=== PATIENT | male | born 1985 | race Caucasian/White ===

== ENCOUNTER 2020-03-04 16:44 | Outpatient (CLI) | payer OTHER, SELFPAY ==
--- NOTE | ~2020-03-04 | XR_ITS ---
EXAMINATION: XR lumbar spine 2-3V EXAM DATE: 03/04/2020 17:12 INDICATION: Acute bilateral low back pain with left sided sciatica . TECHNIQUE: Lumber spine frontal, lateral, lateral L5-S1 projections for interpretation. There is no prior study for comparison. FINDINGS: Mild lumbar disc disease and facet arthropathy. The vertebral bodies are aligned in the AP dimension. Sacrum, sacroiliac joints, sacral arcuate lines are intact. Paraspinal soft tissue is unr emarkable. IMPRESSION: Mild lumbar spondylosis. Reviewed, dictated and finalized at location A. LE ENGINEER IMPRESSION: Mild lumbar spondylosis.
[2020-03-04 17:33] LABS: Basophils Absolute Auto 0.1 K/mm3 (0.0-0.1); Basophils Percent Auto 0.6 % (0.2-1.2); Eosinophils Absolute Auto 0.2 K/mm3 (0-0.3); Eosinophils Percent Auto 2.3 % (0-4.4); Hematocrit 45.3 % (42.0-52.0); Hemoglobin 14.9 g/dL (14.0-18.0); Immature Granulocyte Absolute 0.04 K/mm3 (0.00-0.031); Immature Granulocyte Percent A 0.4 % (0-0.5); Lymphocytes Absolute Auto 3.02 K/mm3 (0.9-3.2); Lymphocytes Percent Auto 32.5 % (18.3-44.2); Mean Corpuscular HGB Conc 32.9 g/dl (32-36); Mean Corpuscular Hemoglobin 27.1 pg (26-34); Mean Corpuscular Volume 82.4 fl (80-100); Mean Platelet Volume 10.1 fl (7.4-10.4); Monocytes Absolute Auto 0.6 K/mm3 (0.1-0.6); Monocytes Percent Auto 6.4 % (2.6-8.5); Neutrophils Absolute Auto 5.4 K/mm3 (1.3-6.7); Neutrophils Percent Auto 57.8 % (45.5-73.1); Platelet Count Result 266 k/mm3 (150-375); Red Cell Distribution Width 12.1 % (11.5-14.5); White Blood Count 9.3 K/mm3 (4.5-10.0)
[2020-03-04 17:45] LABS: Alanine Aminotransferase 45 U/L (4-50); Albumin Level 4.3 g/dL (3.5-5.1); Alkaline Phosphatase 84 U/L (38-126); Aspartate Amino Transferase 35 U/L (17-59); Bilirubin,Total 0.4 mg/dL (0.2-1.3); Blood Urea Nitrogen 20 mg/dL (9-20); Calcium 9.3 mg/dL (8.4-10.2); Carbon Dioxide 29 mmol/L (22-30); Cholesterol 245 mg/dL (0-200); Estimated Glomerular Filt Rate > 60; Glucose 97 mg/dL (75-110); HDL Direct 44 mg/dL; Triglycerides 344 mg/dL (<150)
[2020-03-04 17:55] LABS: LDL Cholesterol Direct 135 mg/dL
[2020-03-04 18:28] LABS: Anion Gap 7 mmol/L (8-16); Chloride 102 mmol/L (98-107); Potassium 4.3 mmol/L (3.4-5.0); Sodium 138 mmol/L (137-145)
== END 2020-03-04 16:45 | disposition home or self-care (01) ==
PROVIDERS: PCP Physician Assistant; Visit Provider Physician Assistant
DX: M54.42 Lumbago with sciatica, left side (principal); M47.896 Other spondylosis, lumbar region
CPT/HCPCS: 36415; 72100; 80053; 80061; 85025

== ENCOUNTER 2022-06-10 01:29 | Day surgery (SDC) | payer OTHER, SELFPAY ==
[2022-05-30 11:17] VITALS: BMI 32.5
[2022-06-10 09:37] VITALS: BP 120/81; PULSE 59; RESP 19; TEMP 36.4; O2SAT 99
[2022-06-10] MEDS: LACTATED RINGERS 1,000 ML 150 ML IV CONT (09:46)
--- NOTE | 2022-06-10 09:46 | P.PNAN_ITS ---
Anes - Initial Pre Proc Eval Procedure: Operation Date: 06/10/22 10:45 Proposed Procedures p Colonoscopy - Dick Bolton MD Date/Time: 06/10/22 09:46 Surgeon: Dick Bolton MD Pre Op Diagnosis: family hx colon ca, diarrhea Patient Data Age: 37 Gender: M Height: 1.83 m Weight: 109.9 kg Last Vital Signs Temp 97.6 F 06/10/22 09:37 Pulse 59 L 06/10/22 09:37 Resp 19 06/10/22 09:37 BP 120/81 06/10/22 09:37 Pulse Ox 99 06/10/22 09:37 O2 Del Method Room Air 06/10/22 09:37 Allergies Allergy/AdvReac Type Severity Reaction Status Date / Time No Known Allergies Allergy Verified 06/10/22 09:36 Home Medications Medication Instructions Recorded Confirmed Type No Home Medications 05/30/22 05/30/22 History Patient hx anesthesia problems: none Family hx anesthesia problems: none Results Review: All pre-operative results and documents have been reviewed as part of the pre-operative evaluation. [facility] Past Medical History Medical History (Updated 04/25/22 @ 16:08 by MARILYN Bello) Frequent loose stools Hyperlipidemia Family History Family History Father Hyperlipidemia Cerebrovascular accident Hypertension Heart disease COPD (chronic obstructive pulmonary disease) Social History Social History Smoking status: Never smoker Alcohol intake: never Substance use: never Substance use type: does not use Living arrangements: with family Spiritual care concerns: No Anes - Eval Final PreProcedure Day of Procedure 06/10/22 09:46 Patient weight: obese Heart: regular rate and rhythm Lungs: clear to auscultation Airway: Mallampati scale class II Neurological: alert and oriented Last oral intake: >/= 8 hours ASA classification: II Emergent: no Anesthetic plan: proceed Anesthesia type and monitoring: general GIVS and standard monitoring Results Review: All pre-operative results and documents have been reviewed as part of the pre- operative evaluation. Informed Consent: The patient's anesthetic plan and its attendant risks and benefits were discussed with the patient/family/POA. Questions were solicited and answers provided to the satisfaction of the patient/family/POA.
--- NOTE | 2022-06-10 10:00 | PM.HPGS ---
History of Present Illness History of Present Illness Consent: Risks, benefits, and alternatives have been discussed and questions answered. Patient agrees to proceed with procedure. Chief complaint: family hx colon ca, diarrhea Narrative: Keo Salgado is a 37 year old male with loose stools for quite some time, never had colonoscopy. Grandmother had colon cancer Review of Systems Constitutional: Constitutional: Denies headache(s) and Denies weakness Eyes: Eyes: Denies blurry vision ENT: Reports Normal hearing present, Denies headache(s) and Denies neck pain Cardiovascular: Cardiovascular: Denies chest pain and Denies dyspnea Respiratory: Respiratory: Denies dyspnea Gastrointestinal: Gastrointestinal: Reports no additional gastrointestinal complaints Genitourinary: Genitourinary: Denies dysuria Musculoskeletal: Musculoskeletal: Denies neck pain Integumentary/Breasts: Skin/Breast: Denies dry skin Neurologic: Reports Normal hearing present, Denies headache(s) and Denies weakness Psychiatric: Psychiatric: Denies anxiety Endocrine: Endocrine: Denies change in body appearance Hematologic/Lymphatic: Hematologic/Lymphatic: Denies easy bleeding Allergic/Immunologic: Allergic/Immunologic: Denies urticaria PMFSH Past Medical History Medical History (Updated 04/25/22 @ 16:08 by MARILYN Bello) Frequent loose stools Hyperlipidemia Family History Family History Father Hyperlipidemia Cerebrovascular accident Hypertension Heart disease COPD (chronic obstructive pulmonary disease) Social History Social History Smoking status: Never smoker Alcohol intake: never Substance use: never Substance use type: does not use Living arrangements: with family Spiritual care concerns: No Meds Home Medications and Allergies Home Medications Medication Instructions Recorded Confirmed Type No Home Medications 05/30/22 05/30/22 History Allergies Allergy/AdvReac Type Severity Reaction Status Date / Time No Known Allergies Allergy Verified 06/10/22 09:36 Vital Signs Vital Signs - 24 hr 06/10/22 09:37 Temperature 97.6 F Pulse Rate 59 L Respiratory Rate 19 Blood Pressure 120/81 Pulse Oximetry 99 Oxygen Delivery Room Air Exam Const: General: comfortable and no acute distress HENMT: Face/Nose/Sinus: Normal nares present Eyes: General: appearance normal, both eyes and all related structures Neck: Neck: no JVD Resp: Auscultation: clear to auscultation bilaterally Cardio: Rate: regular rate Rhythm: regular rhythm GI: Inspection: non-distended GI Palp: Yes Soft to palpation Skin: General skin exam: normal color Neuro: General: gait normal Speech: normal speech Extrem: General: normal to inspection Psych: Mental Status: mental status grossly normal Assessment and Plan Assessment and plan (1) Frequent loose stools: Code(s): R19.7 - Diarrhea, unspecified Status: Acute Assessment and Plan: colonoscopy, consider random colon bx
[2022-06-10 10:21] VITALS: BP 114/75; PULSE 60; RESP 18; O2SAT 96
[2022-06-10 10:31] VITALS: BP 116/70; PULSE 58; RESP 18; O2SAT 98
[2022-06-10 10:41] VITALS: BP 118/87; PULSE 64; RESP 18; O2SAT 98
== END 2022-06-10 10:47 | disposition home or self-care (01) ==
PROVIDERS: PCP Family Medicine; Visit Provider Internal Medicine Gastroenterology
PROC: 0DJD8ZZ Inspection of Lower Intestinal Tract, Via Natural or Artificial Opening Endoscopic (ICD-10-PCS; CPT 45378; principal; 2022-06-10 10:45)
DX: R19.7 Diarrhea, unspecified (principal); K64.8 Other hemorrhoids; K62.1 Rectal polyp; E66.9 Obesity, unspecified; Z68.32 Body mass index [BMI] 32.0-32.9, adult
CPT/HCPCS: 45380; 88305; J2704; J7120

== ENCOUNTER 2022-10-01 17:35 | Emergency (ER) | payer OTHER, SELFPAY ==
--- NOTE | ~2022-10-01 | XR_ITS ---
Right Hand Technique: PA, oblique, and lateral views were obtained. Clinical History: Injury Findings: No acute fracture or dislocation is seen. Osseous alignment is anatomic. Joint spaces are p reserved. Soft tissue lacerations noted the distal aspect of the second and third fingers. Impression: No fracture or dislocation. Soft tissue lacerations of the distal aspect of the second and third fingers. Reviewed, dictated and finalized at location . Impression: No fracture or dislocation. Soft tissue lacerations of the distal aspect of the second and third fingers.
[2022-10-01 17:36] VITALS: BP 152/133; PULSE 100; RESP 20; TEMP 36.9; O2SAT 99
--- NOTE | 2022-10-01 18:02 | ED.WOUNDLAC ---
HPI - Wound/Laceration General Chief Complaint: Wound/Laceration Stated Complaint: R HAND INJURY Time Seen by Provider: 10/01/22 17:46 Source: patient Mode of arrival: ambulatory Limitations: no limitations History of Present Illness HPI narrative: This is a 37 year old male that presents to the ER for laceration to the right 2nd and 3rd fingers sustained just prior to arrival. Reports an accidental injury while cutting heike with a table saw. Is not up to date on tetanus vaccination. Denies decreased ROM or numbness. Related Data Allergies Allergy/AdvReac Type Severity Reaction Status Date / Time No Known Allergies Allergy Verified 10/01/22 18:54 Review of Systems Review of Systems: CONSTITUTIONAL: Denies fever SKIN: Reports laceration NEUROLOGIC: Denies numbness All systems reviewed & are unremarkable except as noted in HPI and below PMFSH Past Medical History Medical History (Updated 10/01/22 @ 19:29 by Marilyn Zafar PA-C) Frequent loose stools Hyperlipidemia Family History Family History Father Hyperlipidemia Cerebrovascular accident Hypertension Heart disease COPD (chronic obstructive pulmonary disease) Social History Social History Smoking status: Never smoker Alcohol intake: never Substance use: never Substance use type: does not use Living arrangements: with family Spiritual care concerns: No Exam Narrative: GENERAL: Well-appearing, well-nourished, and in no acute distress. HEAD: Normocephalic, atraumatic. EYES: EOMI. EXTREMITIES: Normal range of motion. No edema. Right 3rd finger with avulsion injury to the tip. Right 2nd finger with 3cm linear laceration into subcutaneous tissue on the palmar surface with involvement of flexor tendon distal to DIP joint SKIN: Warm, dry, no rash. NEURO: No focal deficits. Alert and oriented x3. PSYCH: Normal mood and affect Course Course Emergency Course: Patient and family educated on wound care Consultations Consultation #1: Spoke with Dr. Hall about patient and workup. Will close skin with chromic gut. He can follow-up with the patient in clinic Date: 10/01/22 Vital Signs Vital signs: Vital Signs Temperature 98.5 F 10/01/22 17:36 Pulse Rate 100 10/01/22 17:36 Respiratory Rate 20 10/01/22 17:36 Blood Pressure 152/133 H 10/01/22 17:36 Pulse Oximetry 99 10/01/22 17:36 Oxygen Delivery Room Air 10/01/22 17:36 Temperature 98.5 F 10/01/22 17:36 Pulse Rate 100 10/01/22 17:36 Respiratory Rate 20 10/01/22 17:36 Blood Pressure 152/133 H 10/01/22 17:36 Pulse Oximetry 99 10/01/22 17:36 Oxygen Delivery Room Air 10/01/22 17:36 Procedures Laceration Laceration 1: Date: 10/01/22 Time: 19:27 Site: hand Side (If applicable): right Size (cm): 3 Description: linear Depth: simple, single layer Local Anesthetic: lidocaine 1% Amount of anesthesia used (mL): 4 Pre-repair: wound explored and irrigated ====== Skin Level ====== Skin layer closed with: other (Chromic Gut) Size (cm): 4-0 Number of sutures: 5 Technique: simple, interrupted ====== Subcutaneous Layer ====== ====== Muscle Layer ====== ====== Tendon Layer ====== MDM - Wound/Laceration MDM Narrative Medical decision making narrative: Patient presents to the emergency department for lacerations to the right hand sustained just prior to arrival. Patient is neurovascularly intact. Right hand x-ray is without acute osseous abnormalities. Patient's wounds were irrigated. He was updated on tetanus. Avulsion injury was bandaged. His other laceration did appear to involve some tendon, although he had normal range of motion in this finger. Spoke with Dr. Hall about patient and workup. Will close skin with c
[2022-10-01] MEDS: TETANUS,DIPHTHERIA,AC PERTUSSIS ADULT (0.5 ML) BOOSTRIX IM (19:41)
[2022-10-01] MEDS: CEPHALEXIN 500 MG CAPSULE PO (19:45)
== END 2022-10-01 19:51 | disposition home or self-care (01) ==
PROVIDERS: Emergency Provider Physician Assistant; PCP Physician Assistant
DX: S61.210A Laceration without foreign body of right index finger without damage to nail, initial encounter (principal); S61.212A Laceration without foreign body of right middle finger without damage to nail, initial encounter; Z23 Encounter for immunization; E78.5 Hyperlipidemia, unspecified; W31.2XXA Contact with powered woodworking and forming machines, initial encounter
CPT/HCPCS: 12002; 73130; 90471; 90715; 99283; A9270

== ENCOUNTER 2023-08-01 14:51 | Outpatient (CLI) | payer OTHER, SELFPAY ==
--- NOTE | ~2023-08-01 | XR_ITS ---
XR shoulder LT min 2V Ordering provider: Yue Garcia, RYAN History: . PAIN RADIATING TO LEFT SHOULDER;PAIN IN JOINT OF LEFT SHOULD . Comparison: None. FINDINGS: BONES: No acute fracture or dislocation. JOINT SPACES: The acromioclavicular joint is normal. The glenohumeral joint is normal. SOFT TISSUES: Normal. IMPRESSION: No acute osseous abnormality left shoulder. Consider MRI of the shoulder if there is concern for soft tissue internal derangement. Reviewed, dictated and finalized at location A. IMPRESSION: No acute osseous abnormality left shoulder. Consider MRI of the shoulder if there is concern for soft tissue internal deran ryder.
== END 2023-08-01 14:52 | disposition home or self-care (01) ==
LOC: ANHIMG 14:52
PROVIDERS: PCP Physician Assistant; Visit Provider Physician Assistant
DX: M25.512 Pain in left shoulder (principal)
CPT/HCPCS: 73030